=== PATIENT | male | born 1980 | race Caucasian/White ===

== ENCOUNTER 2023-09-29 11:24 | Outpatient (CLI) | payer BC, OTHER | END 2023-09-29 11:25 | disposition left against medical advice (07) | LOC: EMS 11:24 | DX: R51.9 Headache, unspecified (principal); R11.0 Nausea; W18.39XA Other fall on same level, initial encounter; S06.9X9A Unspecified intracranial injury with loss of consciousness of unspecified duration, initial encounter; Y04.2XXA Assault by strike against or bumped into by another person, initial encounter; Y93.F9 Activity, other caregiving; Y92.099 Unspecified place in other non-institutional residence as the place of occurrence of the external cause; Y99.0 Civilian activity done for income or pay ==